=== PATIENT | male | born 1990 | race African-American/Black ===

== ENCOUNTER 2017-02-12 08:53 | Emergency (ER) | payer OTHER ==
[~2017-02-12] VITALS: Ht 185.4 cm; Wt 99.5 kg
[2017-02-12 09:10] VITALS: TEMP 37; Ht 185.4 cm; Wt 99.5 kg
[2017-02-12] MEDS ORDERED: MoRPHine SULFATE 10 MG/ML CARP/VIAL IV PRN (09:45)
[2017-02-12] MEDS ORDERED: ONDANSETRON INJ 2 MG/ML 2 ML VIAL IV PRN (09:45)
--- NOTE | 2017-02-12 10:02 | EMERGENCY ROOM VISIT NOTE ---
History Report prepared by Scribe: Jailyn Marcelo Under the Supervision of: Dr. Darshan Dinh M.D. 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 The patient states that his knee gave out causing him to fall. He notes that that he did hit his head but did not loose consciousness. The patient was seen about a month ago for left knee injury and notes that he is still having pain. He denies having any chest pain. Source of History: patient Onset: Just prior to arrival Position: other (global) Quality: other (fall) Timing: other (persistent ) Associated Symptoms: + neck pain, + back pain, No LOC, No chest pain Note: Pt notes a head injury. Review of Systems All systems have been listed, reviewed, and are negative other than those previously mentioned. Please see Additional Medical History Sheet. Past Medical & Surgical Medical Problems: (1) Knee injury Family History No pertinent family history stated. Social History Smoking Status: Unknown if Ever Smoked Housing Status: other (long-term) Occupation Status: unemployed Current/Historical Medications No Active Prescriptions or Reported Meds Allergies Coded Allergies: No Known Allergies (Unverified , 02/12/17) Physical Exam Vital Signs Date Time Temp Pulse Resp B/P (MAP) Pulse Ox O2 Delivery O2 Flow Rate FiO2 02/12/17 11:04 88 16 127/52 98 Room Air 02/12/17 09:10 37.0 65 18 110/70 98 Room Air Physical Exam GENERAL: Patient awake, alert, oriented x 3. Patient follows commands. Patient does not appear toxic. Patient is adequately hydrated and well- nourished. Patient is in moderate distress. SKIN: No erythema, pallor, cyanosis or rash HEENT: Normal head, pupils equal, reactive to light and accommodation. No dawkins sign or raccoon sign. Oral cavity and posterior pharynx appear normal. Neck: Without adenopathy, no neck vein distention. Neck tender to palpation, no stepoff. BACK: Vague tenderness to the mid cervical, thoracic, and lumbar spine. No stepoff, no signs of trauma. LUNGS: Clear to auscultation. No wheezes, no rales, no rhonchi. HEART: No murmurs. No gallops. No rubs ABDOMEN: No masses, no rebound, no hepatomegaly or splenomegaly. EXTREMITIES: Full range of motion of the left knee, negative drawers, no joint laxity, some swelling about the knee. NEUROLOGIC: Cranial nerves II-XII within normal limits. No gross motor sensory function deficits. Medical Decision & Procedures ER Provider Diagnostic Interpretation: Radiology results as stated below per my review and radiologist interpretation: THORACIC SPINE WITHOUT FINDINGS: Alignment of the thoracic spine is anatomic. Vertebral body heights are maintained. There is no thoracic spine fracture or subluxation. There is no paravertebral edema. No fractures are identified within visual portions of the posterior ribs. IMPRESSION: No acute thoracic spine fracture or subluxation. Electronically signed by: Tj Avila M.D. 02/12/2017 10:51 AM Dictated Date/Time: 02/12/2017 10:44 AM LUMBAR SPINE WITHOUT FINDINGS: Alignment of the lumbar spine is anatomic. Vertebral body heights are maintained. There is no fracture. There is no prevertebral edema. Sacroiliac joints are intact. Paravertebral soft tissues are unremarkable by CT. IMPRESSION: No acute lumbar spine fracture or subluxation. Electronically signed by: Tj Avila M.D. 02/12/2017 10:53 AM Dictated Date/Time: 02/12/2017 10:51 AM HEAD WITHOUT CONTRAST (CT) FINDINGS: No acute intracranial hemorrhage, midline shift, mass, large territorial ischemia or abnormal extra-axial collection. The calvarium is intact. The mastoid air cells, and middle ear cavities are clear. Mild polypoid mucosal thickening involves the maxillary sinuses. Mild to moderate ethmoid sinus disease is also present. There is a questioned acute right nasal bone fracture with associated soft tissue swelling. IMPRESSION: 1. No acute intracranial abnormality. 2. Probable acute right nasal bone fracture with adjacent mild soft tissue swelling. The above report was generated using voice recognition software. It may contain grammatical, syntax or spelling errors. Electronically signed by: Bobby Briceño M.D. 02/12/2017 10:42 AM Dictated Date/Time: 02/12/2017 10:[address] OF THE CERVICAL SPINE WITHOUT CONTRAST FINDINGS: Alignment of the cervical spine is anatomic. Vertebral body heights are maintained. There is no fracture. Craniocervical junction is intact. There is no prevertebral edema. IMPRESSION: No acute cervical spine fracture or subluxation. Electronically signed by: Tj Avila M.D. 02/12/2017 10:47 AM Dictated Date/Time: 02/12/2017 10:45 AM Laboratory Results 02/12/17 09:51 02/12/17 09:51 Test 02/12/17 09:51 Red Blood Count 5.08 M/uL (4.7-6.1) Mean Corpuscular Volume 90.7 fL (80-100) Mean Corpuscular Hemoglobin 31.7 pg (25-34) Mean Corpuscular Hemoglobin Concent 34.9 g/dl (32-36) RDW Standard Deviation 40.2 fL (36.4-46.3) RDW Coefficient of Variation 12.0 % (11.5-14.5) Mean Platelet Volume 9.0 fL (7.4-10.4) Anion Gap 2.0 mmol/L (3-11) Est Creatinine Clear Calc Drug Dose 123.0 ml/min Estimated GFR () 104.6 Estimated GFR (Non- 90.2 BUN/Creatinine Ratio 11.6 (10-20) Calcium Level 9.5 mg/dl (8.5-10.1) Laboratory results as stated above per my review. Medications Administered Medications (Trade) Dose Ordered Sig/Tyler Route Start Time Stop Time Status Last Admin Dose Admin Morphine Sulfate (MoRPHine SULFATE INJ) 6 mg Q1H PRN IV 02/12/17 09:45 02/26/17 09:44 02/12/17 10:34 6 MG Ondansetron HCl (Zofran Inj) 4 mg Q1HWA PRN IV 02/12/17 09:45 03/14/17 09:44 02/12/17 10:33 4 MG ED Course 0937: Past medical records reviewed. The patient was evaluated in room B7. A complete history and physical examination was performed. 0945: Zofran Inj 4mg PRN IV nausea, Morphine Sulfate 6mg PRN IV pain. 1147: I reevaluated the patient and reexamined him. 1349: Upon reevaluation, the patient appeared to have improvement of his symptoms. I discussed today's findings with the patient. He verbalized agreement of the treatment plan. The patient was discharged home. Medical Decision Differential diagnosis includes but is not limited to fracture, dislocation, subluxation of cervical/thoracic/lumbar spine, left knee sprain. The patient states that he fell down 10-11 steps while in long-term earlier today. The patient states that his left knee gave out causing the fall. He's had a problem with the left knee for about 1 month. The patient denies loss of consciousness. Examination today reveals no obvious deformities or signs of acute trauma. CT of his head, neck, thoracic and lumbar spine were all negative. Examination of the knee reveals some tenderness and slight swelling but no true joint laxity or positive drawer sign. The patient was given IV pain medication. The patient was placed in a six-inch Ramesh wrap and knee immobilizer. He was encouraged to follow back with the long-term physician. He may require an MRI in the near future if the knee is not improving. Medication Reconcilliation Current Medication List: was personally reviewed by me Blood Pressure Screening Patient's blood pressure: Normal blood pressure Blood pressure disposition: Did not require urgent referral Impression Primary Impression: Multiple contusions Additional Impression: Left knee sprain Scribe Attestation The scribe's documentation has been prepared under my direction and personally reviewed by me in its entirety. I confirm that the note above accurately reflects all work, treatment, procedures, and medical decision making performed by me. Departure Information Dispostion Home / Self-Care Prescriptions No Active Prescriptions or Reported Meds Referrals No Doctor, Assigned (PCP) Forms HOME CARE DOCUMENTATION FORM, IMPORTANT VISIT INFORMATION Patient Instructions My [facility] [place] [employer] Additional Instructions 600 mg of ibuprofen every 6 hours as long as you have pain in your knee. Wear the Ramesh wrap and immobilizer for the next 2 weeks. Follow-up with your long-term physician. Problem Qualifiers
[2017-02-12 10:12] LABS: HEMATOCRIT 46.1 % (42-52); MEAN CELL VOLUME 90.7 fL (80-100); MEAN CORPUSCULAR HEMOGLOBIN 31.7 pg (25-34); MEAN CORPUSCULAR HGB CONC 34.9 g/dl (32-36); PLATELET COUNT 164 K/uL (130-400); RED BLOOD COUNT 5.08 M/uL (4.7-6.1); WHITE BLOOD COUNT 3.84 K/uL (4.8-10.8)
[2017-02-12 10:33] LABS: BUN/CREATININE RATIO 11.6 (10-20); CALCIUM 9.5 mg/dl (8.5-10.1); CREATININE 1.1 mg/dl (0.60-1.40); POTASSIUM 4.5 mmol/L (3.5-5.1)
--- NOTE | 2017-02-12 10:43 | DIAGNOSTIC IMAGING REPORT ---
HEAD WITHOUT CONTRAST (CT) CLINICAL HISTORY: 27 years-old Male with fell down steps. TECHNIQUE: Multiple axial CT images of the head were obtained without contrast. A dose lowering technique was utilized adhering to the principles of ALARA. CT DOSE: 729.78 mGycm COMPARISON: CT cervical spine of same day. FINDINGS: No acute intracranial hemorrhage, midline shift, mass, large territorial ischemia or abnormal extra-axial collection. The calvarium is intact. The mastoid air cells, and middle ear cavities are clear. Mild polypoid mucosal thickening involves the maxillary sinuses. Mild to moderate ethmoid sinus disease is also present. There is a questioned acute right nasal bone fracture with associated soft tissue swelling. IMPRESSION: 1. No acute intracranial abnormality. 2. Probable acute right nasal bone fracture with adjacent mild soft tissue swelling. The above report was generated using voice recognition software. It may contain grammatical, syntax or spelling errors. Electronically signed by: Bobby Briceño M.D. 02/12/2017 10:42 AM Dictated Date/Time: 02/12/2017 10:37 AM
--- NOTE | 2017-02-12 10:48 | DIAGNOSTIC IMAGING REPORT ---
CT OF THE CERVICAL SPINE WITHOUT CONTRAST CLINICAL HISTORY: Fall. COMPARISON STUDY: No previous studies for comparison. TECHNIQUE: Helical axial images of the cervical spine were obtained without IV contrast. Sagittal and coronal reconstructions were viewed. A dose lowering technique was utilized adhering to the principles of ALARA. FINDINGS: Alignment of the cervical spine is anatomic. Vertebral body heights are maintained. There is no fracture. Craniocervical junction is intact. There is no prevertebral edema. IMPRESSION: No acute cervical spine fracture or subluxation. Electronically signed by: Tj Avila M.D. 02/12/2017 10:47 AM Dictated Date/Time: 02/12/2017 10:45 AM
--- NOTE | 2017-02-12 10:52 | DIAGNOSTIC IMAGING REPORT ---
THORACIC SPINE WITHOUT CLINICAL HISTORY: Fall. COMPARISON STUDY: No previous studies for comparison. FINDINGS: Alignment of the thoracic spine is anatomic. Vertebral body heights are maintained. There is no thoracic spine fracture or subluxation. There is no paravertebral edema. No fractures are identified within visual portions of the posterior ribs. IMPRESSION: No acute thoracic spine fracture or subluxation. Electronically signed by: Tj Avila M.D. 02/12/2017 10:51 AM Dictated Date/Time: 02/12/2017 10:44 AM
--- NOTE | 2017-02-12 10:54 | DIAGNOSTIC IMAGING REPORT ---
LUMBAR SPINE WITHOUT CLINICAL HISTORY: Fall. COMPARISON STUDY: No previous studies for comparison. FINDINGS: Alignment of the lumbar spine is anatomic. Vertebral body heights are maintained. There is no fracture. There is no prevertebral edema. Sacroiliac joints are intact. Paravertebral soft tissues are unremarkable by CT. IMPRESSION: No acute lumbar spine fracture or subluxation. Electronically signed by: Tj Avila M.D. 02/12/2017 10:53 AM Dictated Date/Time: 02/12/2017 10:51 AM
[2017-02-12 14:12] VITALS: BP 137/70; PULSE 72; O2SAT 98
== END 2017-02-12 14:13 | disposition home or self-care (01) ==
LOC: C.EDB 08:58
DX: S19.9XXA Unspecified injury of neck, initial encounter (principal); S83.92XA Sprain of unspecified site of left knee, initial encounter; T14.8 Other injury of unspecified body region; M54.9 Dorsalgia, unspecified; M54.2 Cervicalgia; W10.9XXA Fall (on) (from) unspecified stairs and steps, initial encounter

== ENCOUNTER → 2017-06-05 | Outpatient (CLI) | payer OTHER | LOC: C.RDSM 12:59 | PROVIDERS: ATTEND Orthopaedic Surgery | DX: M25.562 Pain in left knee (principal) ==

== ENCOUNTER → 2017-07-27 | Day surgery (SDC) | payer OTHER ==
--- NOTE | 2017-07-22 12:04 | History and Physical ---
History & Physical Date of Service Jul 22, 2017. History & Physical CHIEF COMPLAINT: Left knee pain. HISTORY OF PRESENT ILLNESS: This 27-year-old male presents to the clinic today from [facility] for an evaluation of a left knee issue after an injury he sustained on 01/12/2017. The patient states that he had an MRI earlier this morning that showed a tear of his meniscus. The patient states that he has been wearing a brace while performing activities at present without significant relief of his pain. He states the pain is constant with intermittent locking and swelling. The patient states that he has had no previous injury to this knee prior to the original one that occurred this past January. PAST SURGICAL HISTORY: [place] tooth extraction. PAST MEDICAL HISTORY: Bipolar disorder and insomnia. FAMILY HISTORY: Noncontributory. ALLERGIES: The patient has no known drug allergies. CURRENT MEDICATIONS: Taken at present are Vistaril, unknown dosage daily and Selsun topical solution, unknown dosage, apply as needed. SOCIAL HISTORY: The patient states he does not smoke, drink alcohol or use illicit drugs due to his incarceration. PHYSICAL EXAMINATION: Skin: The patient's skin is normal in appearance. No open skin lesions or discharge. Eyes: Pupils are equal and reactive to light and accommodating. Extraocular movements are intact. Throat: Posterior oropharynx clear with absence of edema, erythema or exudate. Cardiovascular exam: The patient has a regular rate and rhythm, no murmurs or gallops appreciated. Lungs: Auscultation of lung judd reveals clear breath sounds throughout, no wheezing, rales or rhonchi. Abdomen is nonobese, nondistended, nontender with normoactive bowel sounds. Extremities: Left knee, the patient has most of his pain referred to the anterolateral aspect of the knee. He does have some crepitation with active passive range of motion. He is able to extend to 0 degrees and flex to 105 degrees. There is no edema, erythema, ecchymosis, warmth or palpable bony deformity. No varus or valgus laxity, negative AP drawer sign and negative Brian test. Jose F's test is positive with medial and lateral stressing. The patient's calf is soft and supple, nontender to palpation. He experienced no referred pain to the knee with dorsi or plantarflexion of left foot actively or passively against resistance. He is neurovascularly intact in left lower extremities. Peripheral pulses palpable. His capillary refill is brisk. All other extremities are normal in appearance with appropriate range of motion and strength. Neurological exam: Cranial nerves 2-12 are intact. No motor or sensory deficit. Psychological/general exam: Patient is alert and oriented x3 with proper grooming and hygiene. DIAGNOSES: Left knee lateral meniscus tear; possible medial meniscus tear; synovitis. PROCEDURE: Left knee lateral meniscus repair versus meniscectomy; possible medial meniscus repair versus meniscectomy; synovectomy. PLAN: The patient will undergo the surgery with Dr. Paul Garay at the [facility] 07/27/17. The risks and complications of the surgery such as infection, bleeding, pain, scarring, nerve and blood vessel damage, weakness, wound problems, stiffness, incomplete relief of symptoms, heart attack, stroke, , recurrent tear, blood clots, embolism and arthritis were explained to patient by Dr. Garay. Patient understands and agrees and written consent to perform the procedure was obtained. At this point , there is no clinical indication for any preoperative medical clearance or testing. The patient will be scheduled for postoperative followup with myself 2 weeks after the surgery. He may possibly have physical therapy 1 day after the surgery to check his wounds for repairs performed. The patient was provided with prescriptions for oxycodone 5 mg for postoperative pain control, enteric-coated aspirin 81 mg to take daily for DVT prophylaxis along with Tylenol and naproxen for postoperative pain control. The patient was also given an order for crutches and he states he will present to the medical staff at [facility] and that they will provide these ambulatory devices. Patient verbalized understanding of all information provided at today's visit. Thanks for the care he has received and states that if he has questions or concerns that should arise prior to the surgical date, he will contact the clinic accordingly.
[~2017-07-27] MED LIST: ACET-1256 PO; ATROPINE SULFATE 0.1 MG/ML 5ML SYR IV PRN; CEFAZOLIN 2000MG IV PUSH 10 ML IV SCH; DEXAMETHASONE SOD INJ 4 MG/ML VIAL ONE; ESCI10TA17 PO; EpHEDrine SULFATE INJ 50 MG/ML AMP IV PRN; EpINEphrine HCL INJ 1 MG/ML 5ML SYRINGE ONE; FENTANYL CITRATE INJ 50 MCG/1 ML 2 ML VIAL ONE; FLUMAZENIL 0.1 MG/1 ML 10 ML VIAL IV PRN; HYDR50CA PO; HYDROCODONE/ACETAMOPHEN 5/325MG TAB PO PRN; HYDROmorphone INJ 1 MG/ML SYR IV PRN; KETOROLAC TROMETHAMINE 30 MG/ML VIAL ONE; LACTATED RINGER'S 1000ML 1,000 ML IV SCH; LIDO 2%/EPINEPHRINE 1:100000 20 ML VIAL INFIL ONE; LIDOCAINE HCL 2% 2 ML VIAL (20MG/ML) ONE; MIDAZOLAM HCL 1 MG/ML 2ML VIAL ONE; NALOXONE HCL 0.4 MG/1 ML VIAL/CARP IV PRN; NAPR-1169 PO; ONDANSETRON INJ 2 MG/ML 2 ML VIAL IV PRN; ONDANSETRON INJ 2 MG/ML 2 ML VIAL ONE; PATIENT'S HEIGHT AND/OR WEIGHT NEEDED SCH; PROPOFOL IV EMULSION 10 MG/ML 20 ML VIAL IV ONE; ROPIVACAINE 0.5% 5 MG/ML 30 ML VIAL ONE; SLSS EXT; SODIUM CHLORIDE 0.9% 1000ML 1,000 ML IV SCH
--- NOTE | 2017-07-27 06:42 | History & Physical Bridge - SC ---
H&P Re-Evaluation Bridge Note: I have examined the patient, reviewed the History & Physical and in the interval since the performance of the History & Physical I have noted the following changes of clinical significance: No changes noted
--- NOTE | 2017-07-27 08:16 | [facility] Post Operative Brief Note ---
Immediate Operative Summary Operative Date Jul 27, 2017. Pre-Operative Diagnosis Left Knee Lateral Meniscus Tear, Possible Medial Meniscus Tear, Synovitis Post-Operative Diagnosis Left Knee Lateral Meniscus Tear, Synovitis Procedure(s) Performed Left Knee Arthroscopy, Partial Lateral Meniscectomy, Synovectomy, Chondroplasty Surgeon Dr. Garay Rollout Manager Surgeon(s) Moise Theodore PA-C Estimated Blood Loss 5 mL Findings Consistent with Post-Op Diagnosis Fluids (cc crystalloids) 1200 cc Specimens None Drains None Anesthesia Type General Complication(s) none Disposition Disposition: Recovery Room / PACU
--- NOTE | 2017-07-27 08:26 | [facility] Operative Report ---
Operative Report Operative Date Jul 27, 2017. Pre-Operative Diagnosis Left Knee Lateral Meniscus Tear, Possible Medial Meniscus Tear, Synovitis Post-Operative Diagnosis Left Knee Lateral Meniscus Tear, Synovitis Procedure(s) Performed Left Knee Arthroscopy, Partial Lateral Meniscectomy, Synovectomy, Chondroplasty Surgeon Dr. Garay Repairer Welding Systems And Equipment Surgeon(s) Moise Theodore PA-C Estimated Blood Loss 5 mL Findings none Fluids (cc crystalloids) 1200 cc Specimens None Disposition Recovery Room / PACU I attest to the content of the Intraoperative Record and any orders documented therein. Any exceptions are noted below.
--- NOTE | 2017-07-27 08:31 | Discharge Instructions ---
Discharge Instructions Date of Service Jul 27, 2017. Admission Reason for Admission: Left Knee Lateral Meniscus Tear Discharge Discharge Diagnosis / Problem: Left knee lateral meniscus tear, chondromalacia , synovitis Discharge Goals Goal(s): Decrease discomfort, Improve function, Increase independence Activity Recommendations Activity Limitations: as noted below Lifting Limitations: none Exercise/Sports Limitations: until after follow-up appointment May Resume Sexual Activity: when tolerated Shower/Bathe: tomorrow, keep incision dry Driving or Machine Use: Patient does not drive due to incarceration Weightbearing Status: Left weightbearing (as tolerated with aide of crutches) . Instructions / Follow-Up Instructions / Follow-Up Post-operative Instructions Dear Patient and Family/Friends, Before you are discharged from the hospital, it is important to know what to expect when you get home after surgery. To that end, we have created this sheet of discharge instructions which covers many commonly asked questions. Make sure you go through this sheet in its entirety with your nurse before you are discharged. Please note that we will go over the specifics of your surgery and recovery when you return for your first post-operative visit. Sincerely, Dr. Garay Pain Expect to be in a fair amount of pain after surgery. Remember, our goal is not to eliminate your pain, but to make it tolerable. It is a good idea to stay ahead of your pain by taking the medications you were prescribed once you get home. Typically, the pain starts improving 3-7 days after surgery. You should start weaning off the narcotic pain medication (You may substitute Stem 5/325 mg for the previously prescribed Oxycodone if it is not available.) as soon as your pain improves. Please call our office if your pain is not adequately controlled. Ice Ice your operative site at least 5 times a day for 15-30 minutes at a time. Make sure you have a thin cloth between the ice or cooling unit and your skin to prevent booker bite. This is especially important if you received a nerve block. Continue icing your operative site for the first 5-7 days after surgery , then as needed. Diet/Nausea/Vomiting Start by drinking clear liquids and eating crackers. If you can tolerate this, then you may resume your normal diet. If you feel nauseated or vomit, take Zofran/ondansetron (if prescribed). Please call our office if you have intractable nausea or vomiting, or, if after hours, you may go to the Emergency Room for help. Constipation Constipation is a common side effect of narcotic pain medication. If you have not had a bowel movement within 2 days after surgery, we recommend purchasing an over the counter laxative such as Milk of Magnesia, Dulcolax, or Miralax from a local pharmacy, and taking it as instructed. Call our clinic if any questions. Slings and Braces If you were placed in a sling or brace, it must be worn at all times, including sleep. You may remove your sling or brace for physical therapy, home exercises , and showering. The length of time you will be in your brace and range of motion restrictions depends on what surgery you had; these details will be reviewed at your first post-operative appointment. Nerve block The anesthesia team sometimes places a nerve block to help with post-operative pain control. This results in significant numbness and inability to move the extremity. The nerve block usually wears off in 8-12 hours, but sometimes can last up to 24 hours. Please call our office if you are still unable to move your extremity after 24 hours, unless you received a pain pump to take home. Nerve blocks typically wear off quickly, so start taking pain medication as soon as you start feeling soreness near your surgical site. Weight bearing and Range of Motion. Do not bear any weight through your operative extremity immediately after surgery. If you had upper extremity surgery, do not lift anything with that arm. If you are in a knee brace, keep it locked in place until your follow-up. We will discuss your weight bearing, range of motion, and lifting restrictions in detail at your first post-operative appointment. Continuous Passive Motion (CPM) Machine If you were prescribed a CPM machine, it will start after your first post- operative appointment, at which time we will give you instructions on the range of motion settings and duration of treatment Physical therapy You will be given a prescription for physical therapy or occupational therapy at your first post-operative appointment. Typically, patients start therapy within 1 week of surgery Wound care and showering We will inspect your wound at your first post-operative visit, and may do a dressing change at that time. Most patients will be in a water-proof dressing that is removed 14 days after surgery. It is normal to see some dried blood on the dressing. Do not remove your dressing, paper strips or sutures yourself unless you are given permission. Showering is allowed the day after surgery. Do not scrub or remove any dressings. The wound should not be submerged underwater (i.e. in a bathtub or pool) until 4 weeks after surgery CHAITANYA stockings If you were given white stockings, these are to be worn at all times except to shower (on both legs) for the first 2 weeks after surgery. Driving You may not drive while taking narcotic pain medication or while in a cast, splint, sling or brace. You, the patient, need to make the final determination about when you are safe to drive, however, the earliest you may consider driving after surgery is below: Hand/Wrist/Elbow Surgery: 3 days Shoulder Surgery: 2 weeks Hip,/Knee/Ankle Surgery: 4 weeks Fracture repair: 6 weeks Return to Work Your return to work depends on what surgery was done and what type of work you do. Please bring any paperwork your employer needs completed to your first post -operative visit. Also, bring a description of your job duties, as this helps us to understand what risks you may face at work. Travel Avoid long distance travel (greater than 1 hour) in airplanes and cars for the first 6 weeks after surgery. If you must travel, you need to have a Doppler ultrasound done before you travel to rule out a blood clot in your legs. Follow-up You should have a follow-up appointment already scheduled 1-2 days after surgery. If not, please contact our office to make this appointment before you leave the hospital. When to call the office It is normal to have swelling and bruising in the limb that was operated on. This will improve with time. It is also normal to have fevers for the first 2 days after surgery. Reasons you should call your doctor include: Uncontrolled pain; Nausea, vomiting, or constipation that does not improve with medication; Fevers over 101.5, chills, sweats; Drainage or bleeding from the wound; Foul odor; Spreading areas of redness; Any other concerns Current Hospital Diet Patient's current hospital diet: Discharge Diet Recommended Diet: Regular Diet Procedures Procedures Performed: Left Knee Arthroscopy, Partial Lateral Meniscectomy, Synovectomy, Chondroplasty Pending Studies Studies pending at discharge: no Medical Emergencies . Who to Call and When: Medical Emergencies: If at any time you feel your situation is an emergency, please call 911 immediately. . Non-Emergent Contact Non-Emergency issues call your: Primary Care Provider Call Non-Emergent contact if: you have a fever, temperature is above 101.5, your pain is not controlled, your pain is worsening, wound has increased drainage, you have any medication questions . "Provider Documentation" section prepared by Jonathan Theodore. . VTE Core Measure Inpt VTE Proph given/why not?: Other Anticoagulation (Aspirin EC 81 mg), T.E.DZoe Morel [place] Drug Monitoring Program Search Results: patient reviewed within database, no issues identified, see additional documentation
[2017-07-27 09:05] VITALS: TEMP 37.2
--- NOTE | 2017-07-27 09:07 | OPERATIVE REPORT ---
DATE OF OPERATION: 07/27/2017 PREOPERATIVE DIAGNOSES: Left knee lateral meniscus tear and synovitis. POSTOPERATIVE DIAGNOSES: Same and chondral defect of the medial femoral condyle and suprapatellar plica. OPERATIONS PERFORMED: 1. Left knee arthroscopic partial medial meniscectomy. 2. Left knee major synovectomy, including plica excision. 3. Left knee chondroplasty. SURGEON: Paul Garay MD ETCHER MACHINE: MICH Tipton. ANESTHESIA: General with local. IV FLUIDS: 1200 mL crystalloid. ESTIMATED BLOOD LOSS: 5 mL IMPLANTS: None. SPECIMENS: None. COMPLICATIONS: None. INDICATIONS: Mr. Askew is a 27-year-old inmate who hyperextended his knee in January 2017 doing calisthenics. He has had anterolateral knee pain since that time. He has failed conservative treatment with rest, ice, corticosteroid injection. An MRI demonstrates an anterior horn of the lateral meniscus tear. Physical exam is notable for tenderness over Hoffa's fat pad as well as lateral joint line pain. I had a long discussion with him about the risks and benefits of surgery, alternatives to surgery and expected outcomes. After reviewing all these, he elected to proceed with surgery. All questions were answered. Informed consent was signed. OPERATIVE FINDINGS: 1. The undersurface of the patella was normal. 2. The trochlea was normal. 3. The medial and lateral gutters were free of any loose bodies. 4. The suprapatellar pouch showed an incomplete suprapatellar plica. 5. The medial compartment showed a 10 x 5 mm grade 3 chondral defect. The medial meniscus was normal. The medial tibial plateau showed grade 1 chondromalacia. 6. The notch showed the ACL and the PCL to be intact. 7. The lateral compartment showed a tear of the anterior horn of the lateral meniscus with a fragment flipped into the notch. There was also some degenerative tearing of the posterior horn of the lateral meniscus. The lateral femoral condyle and lateral tibial plateau showed grade 1 chondromalacia. 8. There was synovitis of the anterior compartment of the knee, both medially and laterally. The lateral meniscus tear was debrided to a stable margin. The suprapatellar plica was removed. A synovectomy was performed of the anterior aspect of the knee including medially and laterally. A chondroplasty was performed of the medial femoral condyle back to stable margins. DESCRIPTION OF THE OPERATION: The patient was identified in the preoperative holding area where his surgical site was marked. He was brought back to the main operating room, was placed on the operating room table and general anesthesia was administered. All bony prominences were padded. Perioperative antibiotics were administered. He was prepped and draped in the normal sterile fashion. Prior to incision, a multidisciplinary timeout was called. All in the room were in agreement. We began by injecting his portals with a total of 6 mL of 2% lidocaine with epinephrine. We then made our anterolateral viewing portal. An anteromedial working portal was created under direct visualization. We then performed a diagnostic arthroscopy revealing the above findings. Once our diagnostic arthroscopy was complete, the meniscal biters were used to trim back a flap off of the medial femoral condyle lesion. A shaver was used to remove cartilage fragments and continued to smooth down the edges of this chondral defect. We then moved into the lateral compartment where the flipped fragment in the anterior aspect of the knee off the lateral meniscus was removed with a basket punch. The posterior horn lateral meniscus tear was also debrided with the basket punch. A shaver was used to remove meniscal fragments. We placed the scope in both the posteromedial and posterolateral aspects of the knee using a 70-degree scope to verify there were no more meniscal fragments in the back of the knee. We then removed a small amount of synovitis adjacent to the ACL at the lateral tibial spine. Synovitis in the anterior aspect of the knee was debrided with cautery. We moved up in the suprapatellar pouch and began to remove the suprapatellar plica. I was unable to access the entirety of the plica through the 2 portals and therefore, I made a superolateral portal after using a spinal needle for guidance. This allowed me to finish the resection of the suprapatellar plica. At this point, our arthroscopic instruments were removed. His portals were closed with 3-0 Monocryl sutures. The portals were injected with 20 mL of Naropin into the portals and 10 mL into the joint. He was placed into a sterile compressive dressing. He was awoken from anesthesia and transferred to the recovery room in stable condition. POSTOPERATIVE COURSE: The patient will be discharged home from the recovery room. He will be discharged back to his facility from the recovery room. He will follow up in my clinic in 2 weeks for suture removal. He will be weightbearing as tolerated with crutches as needed. Aspirin for DVT prophylaxis. I attest to the content of the Intraoperative Record and any orders documented therein. Any exceptions are noted below. MTDD
--- NOTE | 2017-07-27 09:18 | Anesthesia Progress Nt - [facility] ---
Anesthesia Post Op Note Date & Time Jul 27, 2017 at 09:17 Vital Signs Pain Intensity: 0 Vital Signs Past 12 Hours Date Time Temp Pulse Resp B/P (MAP) Pulse Ox O2 Delivery O2 Flow Rate FiO2 07/27/17 09:05 37.2 74 16 151/83 (105) 100 Room Air 07/27/17 08:56 162/93 07/27/17 08:53 86 12 100 07/27/17 08:53 37.3 88 16 159/93 100 Room Air 07/27/17 08:53 89 12 07/27/17 08:52 89 14 98 07/27/17 08:52 90 14 07/27/17 08:51 95 14 159/93 99 07/27/17 08:51 92 14 07/27/17 08:46 93 16 182/104 100 07/27/17 08:46 94 16 07/27/17 08:41 98 14 173/97 100 07/27/17 08:41 96 14 07/27/17 08:36 100 18 167/99 100 07/27/17 08:36 100 18 07/27/17 08:31 104 17 07/27/17 08:31 105 17 156/106 100 07/27/17 08:26 37.0 106 20 151/90 97 Diffusion Mask 6 07/27/17 08:26 109 12 07/27/17 08:26 111 12 151/90 100 07/27/17 06:24 36.6 60 16 133/80 (97) 100 Room Air Notes Mental Status: alert / awake / arousable, participated in evaluation Pt Amnestic to Procedure: Yes Nausea / Vomiting: adequately controlled Pain: adequately controlled Airway Patency, RR, SpO2: stable & adequate BP & HR: stable & adequate Hydration State: stable & adequate Anesthetic Complications: no major complications apparent
[2017-07-27 09:30] VITALS: BP 151/97; PULSE 77; O2SAT 99
--- NOTE | 2017-07-29 08:32 | EDITING REQUIRED CODING QUERY ---
CODING CLARIFICATION Please clarify below due to conflicting documentation within the operative record: ( ) Medial meniscectomy was performed ( x ) Lateral meniscectomy was performed ( ) Medial and lateral meniscectomy was performed ( ) Other, please clarify: Thank you for your assistance, Livia Sanches - Cte Teacher
== END | disposition home or self-care (01) ==
LOC: X.SURG 06:02
PROVIDERS: ATTEND Orthopaedic Surgery
DX: M23.242 Derangement of anterior horn of lateral meniscus due to old tear or injury, left knee (principal); M23.2 Derangement of meniscus due to old tear or injury; J45.909 Unspecified asthma, uncomplicated; K21.9 Gastro-esophageal reflux disease without esophagitis; F31.9 Bipolar disorder, unspecified; G47.00 Insomnia, unspecified